=== PATIENT | male | born 1960 | race Caucasian/White ===

== ENCOUNTER 2020-02-29 16:48 | Observation (INO) | payer OTHER, BC ==
[2020-02-29] MEDS ORDERED: ACETAMINOPHEN 1000 MG/100 ML VIAL (NON FORMULARY) IVPB ONE (18:06)
[2020-02-29] MEDS ORDERED: ACETAMINOPHEN INJECTION 100 ML IVPB ONE (18:11)
[2020-02-29 18:23] LABS: BASO % 0.6 % (0-2.0); EOS % 0.4 % (0-4.5); HEMATOCRIT 44.4 % (35.4-49); HEMOGLOBIN 14.8 GM/dL (11.7-16.9); MCHC 33.3 g/dl (32.0-35.9); MONO % 7.9 % (3.8-10.2); NEUT % 74.1 % (42.8-82.8); PLATELET COUNT 105 K/MM3 (134-434); RBC 4.62 M/mm3 (4.00-5.60); WHITE BLOOD COUNT 5.2 K/mm3 (4.0-10.0)
[2020-02-29] MEDS ORDERED: ASPIRIN 81 MG CHEWABLE TABLETS PO ONE (18:27)
[2020-02-29 18:31] LABS: PROTHROMBIN TIME (PATIENT) 55.6 SEC (9.7-13.0)
[2020-02-29 18:34] LABS: ACTIVATED PTT 54.5 SECONDS (25.2-36.5)
[2020-02-29] MEDS ORDERED: ASPIRIN 81 MG CHEWABLE TABLETS ONE (18:37)
[2020-02-29 18:43] LABS: CHLORIDE 104 mmol/L (98-107); POTASSIUM 4.9 mmol/L (3.5-5.1); SODIUM 135 mmol/L (136-145)
[2020-02-29 18:46] LABS: ALBUMIN 3.4 g/dl (3.4-5.0); ANION GAP 9 MMOL/L (8-16); BLOOD UREA NITROGEN 33.8 mg/dL (7-18); CALCIUM 8.8 mg/dL (8.5-10.1); CO2 23 mmol/L (21-32); GLUCOSE,RANDOM 137 mg/dL (74-106)
[2020-02-29 18:48] LABS: SGOT/AST 31 U/L (15-37); SGPT/ALT 33 U/L (13-61)
[2020-02-29 18:50] LABS: BILIRUBIN,TOTAL 0.5 mg/dL (0.2-1); CREATININE 1.7 mg/dL (0.55-1.3); INR 4.81 (0.83-1.09); TOT PROT 5.9 g/dl (6.4-8.2)
[2020-02-29 18:51] LABS: ALK PHOS 60 U/L (45-117)
[2020-02-29 21:30] LABS: URINE APPEARANCE CLEAR; URINE BILIRUBIN NEGATIVE (NEGATIVE); URINE COLOR YELLOW; URINE GLUCOSE (UA) NEGATIVE (NEGATIVE); URINE KETONE NEGATIVE (NEGATIVE); URINE LEUK ESTERASE NEGATIVE (NEGATIVE); URINE NITRITE NEGATIVE (NEGATIVE); URINE PROTEIN NEGATIVE (NEGATIVE); URINE UROBILINOGEN 0.2 mg/dL (0.2-1.0)
[2020-02-29] MEDS ORDERED: ATORVASTATIN CA 10 MG TABLET (FP) PO SCH (22:00)
[2020-02-29] MEDS: INSULIN SLIDING SCALE (NOVOLOG) 1 VIAL SQ SCH (22:15)
[2020-02-29] MEDS: METOPROLOL TARTRATE 25 MG TABLET (FP) PO SCH (23:01)
[2020-02-29] MEDS: MYCOPHENOLATE MOFETIL 250 MG CAPSULE PO SCH (23:01)
[2020-02-29] MEDS: TACROLIMUS ANHYDROUS 1 MG CAPSULE PO SCH (23:01)
[2020-03-01 04:17] VITALS: BMI 23.6
[2020-03-01] MEDS: INSULIN SLIDING SCALE (NOVOLOG) 1 VIAL SQ SCH ×2 (06:09→11:54)
[2020-03-01 06:49] LABS: BASO % 0.5 % (0-2.0); EOS % 1.6 % (0-4.5); HEMATOCRIT 43.2 % (35.4-49); HEMOGLOBIN 14.2 GM/dL (11.7-16.9); LYMPH % 26.1 % (8-40); MCH 31.5 pg (25.7-33.7); MCHC 32.9 g/dl (32.0-35.9); MEAN CELL VOLUME 95.7 fl (80-96); MEAN PLT VOLUME 8.9 fl (7.5-11.1); MONO % 9.4 % (3.8-10.2); NEUT % 62.4 % (42.8-82.8); PLATELET COUNT 99 K/MM3 (134-434); RBC 4.51 M/mm3 (4.00-5.60); RDW 14.3 % (11.9-15.9); WHITE BLOOD COUNT 4.4 K/mm3 (4.0-10.0)
[2020-03-01 06:58] LABS: PROTHROMBIN TIME (PATIENT) 55.1 SEC (9.7-13.0)
[2020-03-01 07:20] LABS: POTASSIUM 4.8 mmol/L (3.5-5.1)
[2020-03-01 07:28] LABS: ALBUMIN 3.2 g/dl (3.4-5.0); BLOOD UREA NITROGEN 36.6 mg/dL (7-18); CALCIUM 8.7 mg/dL (8.5-10.1); MAGNESIUM 2.2 mg/dL (1.8-2.4)
[2020-03-01 07:29] LABS: BILIRUBIN,TOTAL 0.6 mg/dL (0.2-1); INR 4.77 (0.83-1.09); TOT PROT 5.4 g/dl (6.4-8.2)
[2020-03-01 07:31] LABS: CREATININE 1.7 mg/dL (0.55-1.3); PHOSPHOROUS 3.5 mg/dL (2.5-4.9)
[2020-03-01] MEDS ORDERED: TAMSULOSIN HCL 0.4 MG CAP PO SCH ×2 (08:30→22:00)
[2020-03-01 09:19] VITALS: BP 145/73; PULSE 72; TEMP 97.9
[2020-03-01] MEDS ORDERED: LISINOPRIL 5 MG TABLET PO SCH (10:00)
[2020-03-01] MEDS ORDERED: SULFAMETHOXAZOLE/TRIMETHOPRIM 800MG/160MG D.S. TABLET PO SCH (10:00)
[2020-03-01] MEDS ORDERED: ASPIRIN 81 MG CHEWABLE TABLETS PO SCH (10:00)
[2020-03-01] MEDS ORDERED: predniSONE 5 MG TABLET (UD) PO SCH (10:00)
[2020-03-01] MEDS ORDERED: METHIMAZOLE 5 MG TABLET (FP) PO SCH (10:00)
[2020-03-01] MEDS: TACROLIMUS ANHYDROUS 1 MG CAPSULE PO SCH (10:12)
[2020-03-01] MEDS: METOPROLOL TARTRATE 25 MG TABLET (FP) PO SCH (10:12)
[2020-03-01] MEDS: MYCOPHENOLATE MOFETIL 250 MG CAPSULE PO SCH (10:13)
[2020-03-01] MEDS ORDERED: PT OWN MED DRAWER 7, Y5N ONE (10:22)
== END 2020-03-01 14:33 | disposition home or self-care (01) ==
LOC: JER 16:48 → JERBED 19:42 → J4W 21:47
PROVIDERS: ADMIT Internal Medicine; ATTEND Nurse Practitioner Acute Care
PROC: 3E033NZ Introduction of Analgesics, Hypnotics, Sedatives into Peripheral Vein, Percutaneous Approach (ICD-10-PCS; principal; 2020-02-29)
DX: I24.9 Acute ischemic heart disease, unspecified (principal); I48.91 Unspecified atrial fibrillation; E11.9 Type 2 diabetes mellitus without complications; E78.5 Hyperlipidemia, unspecified; Z94.0 Kidney transplant status; Z95.1 Presence of aortocoronary bypass graft; Z95.5 Presence of coronary angioplasty implant and graft; Z20.828 Contact with and (suspected) exposure to other viral communicable diseases; R79.1 Abnormal coagulation profile; Z79.01 Long term (current) use of anticoagulants; E03.9 Hypothyroidism, unspecified; N40.0 Benign prostatic hyperplasia without lower urinary tract symptoms; Q87.81 Alport syndrome; R79.89 Other specified abnormal findings of blood chemistry
CPT/HCPCS: 36415; 71045-TC-FY; 80053; 81003; 82550; 82962; 83735; 84100; 84484; 85025; 85610; 85730; 93005; 93010; 96374; 99285-25; C9803; G0378; J0131; J7517; U0003

== ENCOUNTER 2020-03-15 02:26 | Inpatient (IN) | payer OTHER, BC ==
[2020-03-15] MEDS ORDERED: ACETAMINOPHEN 1000 MG/100 ML VIAL (NON FORMULARY) IVPB ONE (03:21)
[2020-03-15] MEDS ORDERED: ACETAMINOPHEN INJECTION 100 ML IVPB ONE ×2 (03:27→13:26)
[2020-03-15 04:31] LABS: POTASSIUM 4.9 mmol/L (3.5-5.1)
[2020-03-15 04:33] LABS: ALBUMIN 3.3 g/dl (3.4-5.0); BLOOD UREA NITROGEN 28.3 mg/dL (7-18); CALCIUM 8.8 mg/dL (8.5-10.1)
[2020-03-15 04:36] LABS: CREATININE 1.6 mg/dL (0.55-1.3); MAGNESIUM 1.9 mg/dL (1.8-2.4)
[2020-03-15 04:38] LABS: BILIRUBIN,TOTAL 0.9 mg/dL (0.2-1); TOT PROT 5.7 g/dl (6.4-8.2)
[2020-03-15 04:43] LABS: INR 1.85 (0.83-1.09); N-TERMINAL BNP 3892.9 pg/ml (5-125)
[2020-03-15 04:45] LABS: ACTIVATED PTT 35.1 SECONDS (25.2-36.5)
[2020-03-15 04:52] LABS: VENOUS BASE EXCESS 0.4 mmol/L (-2-2); VENOUS O2 SATURATION 36.1 % (70-80); VENOUS PCO2 48.6 mmHg (38-52); VENOUS PH 7.357 (7.310-7.410)
[2020-03-15 05:05] LABS: BASO % 0.4 % (0-2.0); EOS % 1.5 % (0-4.5); HEMATOCRIT 44.6 % (35.4-49); HEMOGLOBIN 14.7 GM/dL (11.7-16.9); LYMPH % 10.3 % (8-40); MCH 31.6 pg (25.7-33.7); MEAN CELL VOLUME 95.9 fl (80-96); MEAN PLT VOLUME 9.2 fl (7.5-11.1); MONO % 8.2 % (3.8-10.2); NEUT % 79.6 % (42.8-82.8); PLATELET COUNT 82 K/MM3 (134-434); RBC 4.65 M/mm3 (4.00-5.60); RDW 14.6 % (11.9-15.9); WHITE BLOOD COUNT 4.6 K/mm3 (4.0-10.0)
[2020-03-15 05:57] LABS: PH,URINE 7.5 (5.0-8.0); URINE APPEARANCE CLEAR; URINE BILIRUBIN NEGATIVE (NEGATIVE); URINE COLOR YELLOW; URINE GLUCOSE (UA) NEGATIVE (NEGATIVE); URINE KETONE NEGATIVE (NEGATIVE); URINE LEUK ESTERASE NEGATIVE (NEGATIVE); URINE NITRITE NEGATIVE (NEGATIVE); URINE PROTEIN NEGATIVE (NEGATIVE); URINE UROBILINOGEN 0.2 mg/dL (0.2-1.0)
[2020-03-15] MEDS ORDERED: VANCOMYCIN 1 GM in D5W (PRE-DOCKED) 1,000 MG/250 ML IVPB ONE (06:18)
[2020-03-15] MEDS ORDERED: VANCOMYCIN 1 GRAM (PRE-DOCKED) 1,000 MG/250 ML BAG IVPB ONE (06:27)
[2020-03-15] MEDS ORDERED: CEFEPIME HCL/D5W 1 GM/50 ML BAG IVPB ONE (06:30)
[2020-03-15] MEDS ORDERED: ALBUTEROL SO4 0.083% IH SOL 2.5 MG/3 ML VIAL.NEB. NEB PRN (09:31)
[2020-03-15] MEDS ORDERED: PIPERACILLIN/TAZOB 3.375 GM 3.375 GM in DEXTROSE 5%-WATER - 50 ML IVPB SCH (10:00)
[2020-03-15] MEDS ORDERED: METOPROLOL TARTRATE 25 MG TABLET (FP) ONE (10:57)
[2020-03-15] MEDS ORDERED: CEFEPIME 1 GM/100 ML BAG IVPB ONE (10:57)
[2020-03-15] MEDS ORDERED: LISINOPRIL 5 MG TABLET ONE (10:57)
[2020-03-15] MEDS ORDERED: PIPERACILLIN/TAZOB 3.375 GM 3.375 GM/50 ML BAG IVPB ONE (10:58)
[2020-03-15] MEDS: TACROLIMUS ANHYDROUS 1 MG CAPSULE PO SCH ×2 (11:00→22:18)
[2020-03-15] MEDS: LISINOPRIL 5 MG TABLET PO SCH (11:00)
[2020-03-15] MEDS: METOPROLOL TARTRATE 25 MG TABLET (FP) PO SCH (11:00)
[2020-03-15] MEDS: MYCOPHENOLATE MOFETIL 250 MG CAPSULE PO SCH (11:00)
[2020-03-15] MEDS: METHIMAZOLE 5 MG TABLET (FP) PO SCH (11:14)
[2020-03-15] MEDS: ACETAMINOPHEN 1000 MG/100 ML VIAL (NON FORMULARY) IVPB PRN ×2 (13:25→20:56)
[2020-03-15] MEDS ORDERED: DEXTROSE 5%-WATER - 50 ML IVPB ONE (17:29)
[2020-03-15] MEDS ORDERED: PIPERACILLIN/TAZOBACTAM 3.375 GM VIAL IVPB ONE (17:29)
[2020-03-15] MEDS: PIPERACILLIN/TAZOB 3.375 GM 3.375 GM in DEXTROSE 5%-WATER - 50 ML IVPB SCH (17:50)
[2020-03-15] MEDS ORDERED: WARFARIN NA 2 MG TABLET PO SCH (18:00)
[2020-03-15] MEDS: TAMSULOSIN HCL 0.4 MG CAP PO SCH (22:18)
[2020-03-16] MEDS ORDERED: PIPERACILLIN/TAZOBACTAM 3.375 GM VIAL IVPB ONE ×3 (01:58→16:27)
[2020-03-16] MEDS ORDERED: DEXTROSE 5%-WATER - 50 ML IVPB ONE ×3 (01:58→16:27)
[2020-03-16] MEDS: PIPERACILLIN/TAZOB 3.375 GM 3.375 GM in DEXTROSE 5%-WATER - 50 ML IVPB SCH ×3 (02:01→17:50)
[2020-03-16 07:58] LABS: POTASSIUM 4.6 mmol/L (3.5-5.1)
[2020-03-16 08:04] LABS: CALCIUM 8.7 mg/dL (8.5-10.1)
[2020-03-16 08:05] LABS: BLOOD UREA NITROGEN 25.4 mg/dL (7-18); MAGNESIUM 1.8 mg/dL (1.8-2.4)
[2020-03-16 08:08] LABS: CREATININE 1.8 mg/dL (0.55-1.3)
[2020-03-16] MEDS: TACROLIMUS ANHYDROUS 1 MG CAPSULE PO SCH (10:21)
[2020-03-16] MEDS: METOPROLOL TARTRATE 25 MG TABLET (FP) PO SCH (10:21)
[2020-03-16] MEDS: METHIMAZOLE 5 MG TABLET (FP) PO SCH (10:21)
[2020-03-16] MEDS: MYCOPHENOLATE MOFETIL 250 MG CAPSULE PO SCH (10:21)
[2020-03-16] MEDS: LISINOPRIL 5 MG TABLET PO SCH (10:25)
[2020-03-16 17:42] LABS: INR 1.59 (0.83-1.09)
[2020-03-16] MEDS: predniSONE 5 MG TABLET (UD) PO SCH (17:50)
[2020-03-16] MEDS ORDERED: WARFARIN NA 2 MG TABLET PO SCH ×2 (18:00→22:53)
[2020-03-16] MEDS ORDERED: ACETAMINOPHEN 325 MG TABLET (FP) PO PRN (22:20)
[2020-03-16] MEDS ORDERED: PT OWN MED DRAWER 7, Y5N ONE (22:41)
[2020-03-16] MEDS: TAMSULOSIN HCL 0.4 MG CAP PO SCH (22:48)
[2020-03-17] MEDS ORDERED: PT OWN MED DRAWER 7, Y5N ONE ×5 (00:35→21:50)
[2020-03-17] MEDS ORDERED: DEXTROSE 5%-WATER - 50 ML IVPB ONE ×3 (01:37→17:18)
[2020-03-17] MEDS ORDERED: PIPERACILLIN/TAZOBACTAM 3.375 GM VIAL IVPB ONE ×3 (01:37→17:18)
[2020-03-17] MEDS: TACROLIMUS ANHYDROUS 1 MG CAPSULE PO SCH ×3 (01:43→21:50)
[2020-03-17] MEDS: PIPERACILLIN/TAZOB 3.375 GM 3.375 GM in DEXTROSE 5%-WATER - 50 ML IVPB SCH ×3 (01:43→17:47)
[2020-03-17 07:35] LABS: BASO % 0.4 % (0-2.0); EOS % 1.6 % (0-4.5); HEMATOCRIT 42.9 % (35.4-49); HEMOGLOBIN 14.1 GM/dL (11.7-16.9); LYMPH % 22.8 % (8-40); MCH 31.9 pg (25.7-33.7); MCHC 32.9 g/dl (32.0-35.9); MEAN CELL VOLUME 96.9 fl (80-96); MEAN PLT VOLUME 8.8 fl (7.5-11.1); MONO % 14.8 % (3.8-10.2); NEUT % 60.4 % (42.8-82.8); PLATELET COUNT 72 K/MM3 (134-434); RBC 4.43 M/mm3 (4.00-5.60); RDW 14.6 % (11.9-15.9); WHITE BLOOD COUNT 3.6 K/mm3 (4.0-10.0)
[2020-03-17 07:43] LABS: POTASSIUM 4.7 mmol/L (3.5-5.1)
[2020-03-17 07:46] LABS: CALCIUM 8.8 mg/dL (8.5-10.1)
[2020-03-17 07:47] LABS: BLOOD UREA NITROGEN 27.1 mg/dL (7-18)
[2020-03-17 07:50] LABS: CREATININE 1.6 mg/dL (0.55-1.3)
[2020-03-17 07:51] LABS: BILIRUBIN,TOTAL 1.2 mg/dL (0.2-1)
[2020-03-17 07:54] LABS: TOT PROT 5.4 g/dl (6.4-8.2)
[2020-03-17 08:03] LABS: INR 1.61 (0.83-1.09); PROTHROMBIN TIME (PATIENT) 19.5 SEC (9.7-13.0)
[2020-03-17] MEDS: LISINOPRIL 5 MG TABLET PO SCH (10:02)
[2020-03-17] MEDS: predniSONE 5 MG TABLET (UD) PO SCH (10:03)
[2020-03-17] MEDS: METHIMAZOLE 5 MG TABLET (FP) PO SCH (10:03)
[2020-03-17] MEDS: METOPROLOL TARTRATE 25 MG TABLET (FP) PO SCH (10:04)
[2020-03-17] MEDS: MYCOPHENOLATE MOFETIL 250 MG CAPSULE PO SCH (10:04)
[2020-03-17 16:10] LABS: CMV IgM < 30.0 AU/mL (0.0-29.9)
[2020-03-17] MEDS: ALBUTEROL SO4 0.083% IH SOL 2.5 MG/3 ML VIAL.NEB. NEB SCH (20:27)
[2020-03-17] MEDS: TAMSULOSIN HCL 0.4 MG CAP PO SCH (21:48)
[2020-03-18] MEDS ORDERED: PIPERACILLIN/TAZOBACTAM 3.375 GM VIAL IVPB ONE ×3 (01:34→16:42)
[2020-03-18] MEDS ORDERED: DEXTROSE 5%-WATER - 50 ML IVPB ONE ×3 (01:34→16:42)
[2020-03-18] MEDS: PIPERACILLIN/TAZOB 3.375 GM 3.375 GM in DEXTROSE 5%-WATER - 50 ML IVPB SCH ×3 (01:37→17:24)
[2020-03-18 08:00] LABS: INR 2.05 (0.83-1.09); PROTHROMBIN TIME (PATIENT) 24.3 SEC (9.7-13.0)
[2020-03-18 08:06] LABS: BASO % 0.6 % (0-2.0); HEMATOCRIT 40.4 % (35.4-49); HEMOGLOBIN 13.2 GM/dL (11.7-16.9); LYMPH % 21.6 % (8-40); MCH 31.5 pg (25.7-33.7); MCHC 32.8 g/dl (32.0-35.9); MEAN CELL VOLUME 96.2 fl (80-96); MEAN PLT VOLUME 8.4 fl (7.5-11.1); MONO % 12.2 % (3.8-10.2); NEUT % 62.6 % (42.8-82.8); PLATELET COUNT 86 K/MM3 (134-434); RDW 14.4 % (11.9-15.9); WHITE BLOOD COUNT 3.3 K/mm3 (4.0-10.0)
[2020-03-18 08:14] LABS: POTASSIUM 3.9 mmol/L (3.5-5.1)
[2020-03-18 08:31] LABS: ALBUMIN 2.8 g/dl (3.4-5.0); BLOOD UREA NITROGEN 23.5 mg/dL (7-18)
[2020-03-18 08:35] LABS: CREATININE 1.3 mg/dL (0.55-1.3); PHOSPHOROUS 3.2 mg/dL (2.5-4.9)
[2020-03-18 08:36] LABS: BILIRUBIN,TOTAL 0.7 mg/dL (0.2-1); CALCIUM 8.4 mg/dL (8.5-10.1); TOT PROT 5.2 g/dl (6.4-8.2)
[2020-03-18] MEDS: ALBUTEROL SO4 0.083% IH SOL 2.5 MG/3 ML VIAL.NEB. NEB SCH ×4 (08:45→20:47)
[2020-03-18] MEDS: TACROLIMUS ANHYDROUS 1 MG CAPSULE PO SCH ×2 (09:22→21:48)
[2020-03-18] MEDS: METOPROLOL TARTRATE 25 MG TABLET (FP) PO SCH (09:22)
[2020-03-18] MEDS: LISINOPRIL 5 MG TABLET PO SCH (09:22)
[2020-03-18] MEDS: predniSONE 5 MG TABLET (UD) PO SCH (09:22)
[2020-03-18] MEDS: MYCOPHENOLATE MOFETIL 250 MG CAPSULE PO SCH (09:23)
[2020-03-18] MEDS: METHIMAZOLE 5 MG TABLET (FP) PO SCH (09:23)
[2020-03-18 11:59] VITALS: BMI 24.3
[2020-03-18] MEDS ORDERED: WARFARIN NA 5 MG TABLET PO SCH (12:00)
[2020-03-18] MEDS: POLYETHYLENE GLYCOL 3350 119 GM BTL PO SCH (12:19)
[2020-03-18] MEDS: SENNOSIDES 8.6MG TABLET (FP) PO SCH ×2 (12:19→21:48)
[2020-03-18] MEDS: DOCUSATE SODIUM 100 MG CAPSULE (FP) PO SCH ×2 (13:53→21:48)
[2020-03-18] MEDS: TAMSULOSIN HCL 0.4 MG CAP PO SCH (21:48)
[2020-03-19] MEDS ORDERED: PIPERACILLIN/TAZOBACTAM 3.375 GM VIAL IVPB ONE ×2 (00:55→09:52)
[2020-03-19] MEDS ORDERED: DEXTROSE 5%-WATER - 50 ML IVPB ONE ×2 (00:55→09:52)
[2020-03-19] MEDS: PIPERACILLIN/TAZOB 3.375 GM 3.375 GM in DEXTROSE 5%-WATER - 50 ML IVPB SCH ×2 (01:17→10:03)
[2020-03-19] MEDS: DOCUSATE SODIUM 100 MG CAPSULE (FP) PO SCH ×2 (05:22→14:39)
[2020-03-19 07:56] LABS: BASO % 0.5 % (0-2.0); EOS % 2.4 % (0-4.5); HEMATOCRIT 40.4 % (35.4-49); HEMOGLOBIN 13.1 GM/dL (11.7-16.9); LYMPH % 21.6 % (8-40); MCH 31.3 pg (25.7-33.7); MCHC 32.5 g/dl (32.0-35.9); MEAN CELL VOLUME 96.5 fl (80-96); MEAN PLT VOLUME 8.4 fl (7.5-11.1); MONO % 11.1 % (3.8-10.2); NEUT % 64.4 % (42.8-82.8); PLATELET COUNT 95 K/MM3 (134-434); RBC 4.19 M/mm3 (4.00-5.60); RDW 14.7 % (11.9-15.9); WHITE BLOOD COUNT 3.4 K/mm3 (4.0-10.0)
[2020-03-19 08:06] LABS: INR 2.12 (0.83-1.09); PROTHROMBIN TIME (PATIENT) 25.1 SEC (9.7-13.0)
[2020-03-19] MEDS: ALBUTEROL SO4 0.083% IH SOL 2.5 MG/3 ML VIAL.NEB. NEB SCH ×3 (08:10→15:50)
[2020-03-19 08:13] LABS: POTASSIUM 3.9 mmol/L (3.5-5.1)
[2020-03-19 08:16] LABS: ALBUMIN 2.8 g/dl (3.4-5.0); BLOOD UREA NITROGEN 17.3 mg/dL (7-18); CALCIUM 8.4 mg/dL (8.5-10.1)
[2020-03-19 08:18] LABS: CREATININE 1.4 mg/dL (0.55-1.3); MAGNESIUM 2.1 mg/dL (1.8-2.4)
[2020-03-19 08:19] LABS: PHOSPHOROUS 3.6 mg/dL (2.5-4.9)
[2020-03-19 08:21] LABS: BILIRUBIN,TOTAL 0.5 mg/dL (0.2-1); TOT PROT 5.3 g/dl (6.4-8.2)
[2020-03-19] MEDS: MYCOPHENOLATE MOFETIL 250 MG CAPSULE PO SCH (10:03)
[2020-03-19] MEDS: SENNOSIDES 8.6MG TABLET (FP) PO SCH (10:04)
[2020-03-19] MEDS: METOPROLOL TARTRATE 25 MG TABLET (FP) PO SCH (10:04)
[2020-03-19] MEDS: TACROLIMUS ANHYDROUS 1 MG CAPSULE PO SCH (10:04)
[2020-03-19] MEDS: predniSONE 5 MG TABLET (UD) PO SCH (10:04)
[2020-03-19] MEDS: LISINOPRIL 5 MG TABLET PO SCH (10:04)
[2020-03-19] MEDS: METHIMAZOLE 5 MG TABLET (FP) PO SCH (10:06)
[2020-03-19] MEDS: POLYETHYLENE GLYCOL 3350 119 GM BTL PO SCH (10:06)
[2020-03-19 14:20] VITALS: BP 121/62; PULSE 71; TEMP 97.8
== END 2020-03-19 17:32 | disposition home or self-care (01) | DRG 871 ==
LOC: JER 02:26 → JERBED 06:50 → J7W 14:25
PROVIDERS: ADMIT Internal Medicine; ATTEND Internal Medicine
DX: A41.89 Other specified sepsis (principal); J12.9 Viral pneumonia, unspecified; Q87.81 Alport syndrome; N17.9 Acute kidney failure, unspecified; Z94.0 Kidney transplant status; I48.91 Unspecified atrial fibrillation; E11.9 Type 2 diabetes mellitus without complications; I10 Essential (primary) hypertension; E78.5 Hyperlipidemia, unspecified; I25.10 Atherosclerotic heart disease of native coronary artery without angina pectoris; E05.90 Thyrotoxicosis, unspecified without thyrotoxic crisis or storm; Z95.5 Presence of coronary angioplasty implant and graft; Z95.1 Presence of aortocoronary bypass graft; Z79.01 Long term (current) use of anticoagulants
CPT/HCPCS: 36415; 71045-TC-FY; 71250-TC; 74018-TC-FY; 80048; 80053; 81003; 82565; 82728; 82803; 82962; 83605; 83615; 83735; 83880; 84100; 84156; 84484; 85025; 85379; 85384; 85610; 85730; 86140; 86644; 86645; 86664; 87040; 87070; 87086; 87205; 87804; 87807; 93005; 93010; 94640; 99285-25; C9803; J0131; J7517; U0003

== ENCOUNTER 2021-08-29 12:34 | Emergency (ER) | payer OTHER, BC ==
[2021-08-29 12:45] VITALS: BP 116/64; PULSE 71; TEMP 98.1; BMI 23.9
[2021-08-29] MEDS ORDERED: SODIUM CHLORIDE 0.9% 500 ML INFUS.BAG IV ONE (13:29)
[2021-08-29] MEDS ORDERED: MAG HYDROX/AL HYDROX/SIMETH 30 ML UNIT-DOSE CUP PO ONE (13:29)
[2021-08-29] MEDS ORDERED: FAMOTIDINE 20 MG/50 ML IVPB 20 MG/50 ML MG IVPB ONE ×2 (13:29→13:37)
[2021-08-29] MEDS ORDERED: MAG HYDROX/AL HYDROX/SIMETH 30 ML UNIT-DOSE CUP ONE (13:37)
[2021-08-29 14:24] LABS: BASO % 0.2 % (0-2.0); EOS % 0.9 % (0-4.5); HEMATOCRIT 45.6 % (35.4-49); HEMOGLOBIN 15.4 GM/dL (11.7-16.9); MCHC 33.9 g/dl (32.0-35.9); MEAN CELL VOLUME 94.4 fl (80-96); MEAN PLT VOLUME 8.5 fl (7.5-11.1); MONO % 9.4 % (3.8-10.2); NEUT % 74.5 % (42.8-82.8); PLATELET COUNT 98 10^3/uL (134-434); RBC 4.83 M/mm3 (4.00-5.60); RDW 14.6 % (11.9-15.9); WHITE BLOOD COUNT 5.2 K/mm3 (4.0-10.0)
[2021-08-29 14:51] LABS: ALBUMIN 3.4 g/dl (3.4-5.0); CALCIUM 9.3 mg/dL (8.5-10.1); MAGNESIUM 1.9 mg/dL (1.8-2.4)
[2021-08-29 14:55] LABS: CREATININE 1.5 mg/dL (0.55-1.3)
[2021-08-29 14:56] LABS: BILIRUBIN,TOTAL 0.6 mg/dL (0.2-1); TOT PROT 5.8 g/dl (6.4-8.2)
[2021-08-29 15:43] LABS: PH,URINE 5.5 (5.0-8.0); URINE APPEARANCE CLEAR; URINE BILIRUBIN NEGATIVE (NEGATIVE); URINE COLOR YELLOW; URINE GLUCOSE (UA) NEGATIVE (NEGATIVE); URINE KETONE NEGATIVE (NEGATIVE); URINE LEUK ESTERASE NEGATIVE (NEGATIVE); URINE NITRITE NEGATIVE (NEGATIVE); URINE PROTEIN NEGATIVE (NEGATIVE); URINE UROBILINOGEN 0.2 mg/dL (0.2-1.0)
== END 2021-08-29 16:30 | disposition home or self-care (01) ==
LOC: JER 12:34
PROC: 3E033NZ Introduction of Analgesics, Hypnotics, Sedatives into Peripheral Vein, Percutaneous Approach (ICD-10-PCS; principal; 2021-08-29)
DX: R19.7 Diarrhea, unspecified (principal)
CPT/HCPCS: 36415; 74176-TC; 80053; 81003; 83735; 84443; 85025; 87086; 99284-25